=== PATIENT | male | born 1945 | race Caucasian/White ===

== ENCOUNTER → 2018-09-04 13:40 | Outpatient (CLI) | payer OTHER, SELFPAY ==
--- NOTE | 2018-09-04 15:06 | PM.TREADMILL ---
Cardiac Stress Test Report Referral & Results Date Patient Seen: 09/04/18 Requesting provider: Juarez Rahman Indication: Dyspnea Rest ECG: Unremarkable Procedure Note: Today following both written and verbal informed consent, the patient was exercised according to a standard [facility] protocol. The patient exercised for a total of 7 min 3 sec achieving a maximum heart rate of 150 to. Patient's maximum systolic blood pressure was 180. This was an estimated 10.1 MET's. Patient's oxygen saturation of peak exercise was 94% There are no ST see segment changes identified Normal heart rate and blood pressure response to exercise Functional aerobic impairment rated approximately -10 per some sedentary scale, and patient could gone probably much further as the treadmill was stopped Due to having reached his targets Impression: No evidence of ischemia No evidence of hypoxia Normal exercise capacity 2 perhaps better than normal exercise capacity Clinical correlation suggested Please note: Actual ECG tracings can be found in the PACS system.
== END ==
PROVIDERS: PCP Family Medicine Geriatric Medicine; Visit Provider Family Medicine Geriatric Medicine
DX: R06.00 Dyspnea, unspecified (principal)
CPT/HCPCS: 93016; 93017; 93018

== ENCOUNTER 2023-07-04 06:23 | Day surgery (SDC) | payer MEDICARE, SELFPAY ==
[2023-06-17 11:57] VITALS: BMI 32.4
[2023-07-04] VITALS (12 sets, daily range): BP systolic 110–163; BP diastolic 47–78; PULSE 58–93; RESP 12–21; TEMP 36.2–37.3; O2SAT 96–100; BMI 32.4
--- NOTE | 2023-07-04 | DI.RAD.S_ITS ---
PROCEDURE: XR PELVIS 1-2V INDICATIONS: INTER OP IMAGE FOR TOTAL RIGHT HIP TECHNIQUE: Intra-operative view of the pelvis and hip acquired. COMPARISON: [facility], PELVIS 1 OR 2 VIEWS, 01/10/2015, 16:02. FINDINGS: An intraoperative film demonstrates that a total right hip arthroplasty is being performed, with no evidence of complications. IMPRESSION: Intraoperative imaging utilized during total right hip arthroplasty. Dictated by: Ismael Lemus M.D. on 07/04/2023 at 11:04 Approved by: Ismael Lemus M.D. on 07/04/2023 at 11:07
[2023-07-04] MEDS: LACTATED RINGERS 1,000 ML 42 ML IV (07:12)
--- NOTE | 2023-07-04 07:31 | DI.RAD.S_ITS ---
PROCEDURE: XR HIP W PEL IF DONE RT 2V INDICATIONS: total hip TECHNIQUE: AP pelvis and lateral view of the right hip acquired. COMPARISON: [facility], CR, XR PELVIS 1-2V, 07/04/2023, 9:03. [facility], CR, XR PELVIS WITH LATERAL HIP RIGHT, 05/15/2023, 11:17. FINDINGS: Bones: Patient is status post right hip arthroplasty, with hardware components in expected positions. The hip joint appears congruent. The visualized bony structures appear intact. Previous left hip arthroplasty is stable. Soft tissues: Overlying postoperative changes are noted. No suspicious soft tissue densities. IMPRESSION: Expected postoperative changes with new right hip arthroplasty. Stable appearance of left hip arthroplasty. Dictated by: Hanna Hernandez M.D. on 07/04/2023 at 10:53 Approved by: Hanna Hernandez M.D. on 07/04/2023 at 10:53
--- NOTE | 2023-07-04 07:32 | PM.PREOP ---
Pre-operative Note Interval Note History & Physical reviewed/Exam performed by Physician: Yes Changes to H&P: No
[2023-07-04] MEDS: VANCOMYCIN 1,000 MG/200 ML PIGGYBACK 200 MG IV (07:45)
[2023-07-04] MEDS: ACETAMINOPHEN 325 MG TABLET 975 MG PO (07:45)
[2023-07-04] MEDS: CEFAZOLIN 2 GM/100 ML PREMIX 100 ML IV ×2 (08:20→16:00)
--- NOTE | 2023-07-04 08:30 | SUR.OPER ---
Lateral on padded OR bed. Gel axillary roll. Arms secured on padded armboard with pillow supporting top arm. Padded hip positioner braces x4 - anterior and posterior chest and pelvis. Additional gel pad used anterior pelvis. Gel pad under bottom leg from knee to foot and secured with tape over sheet.
[2023-07-04] MEDS: BUPIVACAINE LIPOSOME 266 MG/20 ML VIAL INJ (08:37)
[2023-07-04] MEDS: BUPIVACAINE 0.5% W/ EPI (PF) 30 ML VIAL 60 ML INJ (08:48)
[2023-07-04] MEDS: EPINEPHrine 1 MG/ML TOP (09:00)
--- NOTE | 2023-07-04 10:14 | P.OP_ITS ---
Operative Date/Time/Diagnoses Date of procedure: 07/04/23 Time of procedure: 08:00 Pre-op diagnosis: Left hip osteoarthritis severe Post-op diagnosis: same Procedure & Clinicians Procedure: Left total hip arthroplasty posterior approach Same procedure as scheduled: Yes Indications: The patient has had progressively worsening left hip pain with radiographic changes consistent with arthritis. Non-operative management has failed and the patient has requested total hip replacement. The risks, benefits and alternatives to surgery were discussed with the patient prior to proceeding. Risks discussed included, but were not limited to, failure to relieve pain, leg length discrepancy, dislocation, stiffness, infection, nerve damage, deep venous thrombosis, pulmonary embolism, stroke, coma, heart attack, permanent paralysis and , as well as the potential need for eventual revision of the prosthetic. Surgeon: Flory Holman [employer] Inspector: Prabhakar Gonzales Anesthesia Type: General and Spinal Operative Notes Findings: Severe left hip arthritis, adequate stability, adequate bone Closure Type: primary Specimen(s): none sent Prosthetic devices, grafts, tissues, transplants, or devices: Holman and nephew Synergy size 14 high offset, 60 mm R3 cup, 60 x 40 neutral liner, +4 cobalt chrome head,one 6.5 mm screw Estimated Blood Loss (mL): 250 Blood products transfused: none Procedure in detail: The patient was seen in the pre-operative area, where the patient identified the left hip as the operative site and this was marked with my initials. The patient received pre-operative antibiotics and was taken to the operating room and placed on the operative table in the right lateral decubitus position after satisfactory anesthesia. A returned case inspector out was performed. The left leg was prepared from the ankle to the iliac crest with ChloroPrep in the usual fashion and draped through sterile drapes. The hip was approached through an approximately 20 cm incision centered over the greater trochanter and curving gently posteriorly as it went proximally. This was carried sharply to the fascia john, which was divided and retracted with a self retaining retractor. The trochanteric bursa was excised with care being taken to avoid the sciatic nerve, which was identified and protected throughout the case. The short external rotators were incised and the capsulomuscular flap was raised and tagged for later repair. The hip was dislocated, and a femoral neck osteotomy performed approximately 15 mm above the lesser trochanter. Retractors were placed around the femur. The canal was opened with a box cut ting osteotome, followed by a T handled reamer and a lateralizing reamer. The canal was reamed, followed by sequential broaching until there was good stability of the broach in the femur. Retractors were placed to expose the acetabulum. The labrum and central soft tissues were removed. Reaming was performed initially going up in 2 mm increments, then 1 mm increments until good bite was obtained with an odd sized reamer. The cup 1 mm larger than the last reamer was then inserted using the appropriate anteversion guides. It was further stabilized with a single screw. A trial neutral liner was placed. The broach was placed in the canal. A trial head and neck were then placed and the hip relocated and checked for leg length and stability. An intraoperative film confirmed the component position and no evidence of fracture. The patient was stable in the position of sleep, of squatting, and could be put through a range of motion with 45 degrees internal rotation without dislocation. At 90 degrees flexion, internal rotation to 70? was possible before dislocation. This was felt to be satisfactory and the appropriate components were opened, and the trials were removed. I specifically checked the stem and decided to go up to a size 14 which had good stability. The acetabular liner was impacted into position. The final stem was then impacted into the prepared femoral canal. A brief Betadine soak was performed while trialing with head options. The hip was meticulously irrigated with normal saline. Finally the femoral head was impacted onto the stem. The acetabulum was cleared of all material and the hip relocated one final time. The capsulomuscular flap was then repaired to the greater trochanter though an awl hole using the tag sutures. The short external rotators were repaired with a nonabsorbable suture. A deep drain was placed and brought out anteriorly. The fascia john was closed with Vicryl. The subcutaneous layer was closed with barbed sutures and SteriStrips. An Aquacel Ag dressing was applied and the patient was taken to recovery having tolerated the procedure well. Complications: none Post-operative Condition: stable Disposition: Acute Care Plan for aftercare: The patient will be maintained on a standard total hip replacement protocol with weight bearing as tolerated and posterior hip precautions. The patient will receive Aspirin and sequential compression devices for DVT prophylaxis. The patient will be discharged home when safe for the home environment.
--- NOTE | 2023-07-04 11:38 | PC.NURSE ---
Addendum entered by Sweetie Daniels R.N. 07/04/23 14:45: Pain medication given to patient helpful, heplocked patient has he has been drinking water and he drank some ice tea. Keeping oral fluids down well. Addendum entered by Sweetie Daniels R.N. 07/04/23 11:52: Patient complained of his pain at a 7/8 out of 10 to his r.hip. He did not understand our pain scale. Explained to him that 8/10 pain would mean be patient is crying. Explained pain scale further, and he states that he is in the middle around a 5. Given tylenol and ibuprfen. Will reassess his discomfort in 30 minutes and see if he may need something more for his discomfort. at bedside. Ice water filled up. Original Note: Assess- Patient is awake and states that he has feeling to his r.lower extremity and foot but it feels slightly numb from the spinal that he received in surgery. Dressing to r.hip with aquacel, cdi. CMS wnl and tolerating ivf. Resting comfortably and denies nausea or pain at this time.
[2023-07-04] MEDS: IBUPROFEN 400 MG TABLET PO ×3 (11:45→20:34)
[2023-07-04] MEDS: ACETAMINOPHEN 325 MG TABLET 650 MG PO ×2 (11:46→15:59)
[2023-07-04] MEDS: OXYCODONE IR 5 MG TABLET PO ×2 (12:49→15:59)
[2023-07-04] MEDS: LACTATED RINGERS 1,000 ML 100 ML IV (16:00)
--- NOTE | 2023-07-04 16:05 | PT.IIE ---
Current Diagnoses Unilateral primary osteoarthritis, right hip (07/04/23) Surgery Performed Operation Date: 07/04/23 07:45 Actual Procedures p Total Hip Arthroplasty posterior(Right) - Flory Holman MD Surgical History (Last Updated 06/17/23 @ 12:05 by Letty Mccall, RN) History of hydrocelectomy (2012) History of total left hip replacement (01/10/15) Hx of colonoscopy (2008) S/P excision of lipoma (2005) Medical History (Last Updated 06/17/23 @ 13:21 by Letty Mccall RN) Anesthesia complication BPH (benign prostatic hyperplasia) Gout History of COVID-19 (11/2022) HTN (hypertension) DANTE on CPAP Physical Therapy Inpatient Evaluation/Re-Eval M1 PT/OT-IP Prior Functional Status Start: 07/04/23 15:51 Freq: NEEDED Status: Active Protocol: Document 07/04/23 15:51 ED (Rec: 07/04/23 16:05 ED [id number]) Medical Review Prior Functional Status Medical History Reviewed Yes Communication A&Ox4 Mobility and Gait ambulated in community. Recently was using quad cane d /t accumulating hip pain Social History Household Members spouse Living Arrangements House Number of Floors (Floors) Two Floors Number of Stairs To Enter/Railing? 5 VILMA c/ railing BUT has ramped entrance as well Home Environment Walk in Shower,Ramp Home Equipment Front Wheel Walker,Quad Cane, Hand Held Shower Employment Status Retired M2 PT-IP Current Condition Start: 07/04/23 15:51 Freq: NEEDED Status: Active Protocol: Document 07/04/23 15:51 ED (Rec: 07/04/23 16:05 ED [id number]) Physical Therapy Current Condition Current Condition Evaluation Date 07/04/23 Treatment Diagnosis impaired functional mobility Onset Date 07/04/23 M3 PT-IP Subjective Start: 07/04/23 15:51 Freq: NEEDED Status: Active Protocol: Document 07/04/23 15:51 ED (Rec: 07/04/23 16:05 ED [id number]) Subjective Physical Therapy Visit Type Type Initial Evaluation Visit Start Time 15:00 Visit Stop Time 15:40 Total Visit Minutes 40 Physical Therapy Visit Comments Patient Comments Pt has had DIANNA of L hip a few years ago so he states he is aware of the precautions. He is able to verbalize the precautions to PT. States he has outpatient PT scheduled for next Saturday. He will live on the main floor of their home so he can avoid negotiating steps for the time being. Has spare bedroom that he will sleep in. Patient Goals Go home and stop using quad cane when walking Therapy Pain Assessment Pain When Pain Assessed At Rest Pain Present Pain Present Pain Reported Location hip Intensity 5 Scale Used Numeric (0 - 10) Description Aching,Acute Pain Management Techniques Apply Cold,Re-positioning, Timing of Activity with Medications M4 PT-IP Mobility and Gait Start: 07/04/23 15:51 Freq: NEEDED Status: Active Protocol: Document 07/04/23 15:51 ED (Rec: 07/04/23 16:05 ED [id number]) PT-Bed Mobility Assessment Rolling Type of Rolling Roll to Right Level of Assist Standby Assistance Supine to Sit Supine to Sit Contact Guard Assistance, Bedrails Scooting Scooting to Edge of Bed Standby Assistance Scooting Up and Down in Bed Standby Assistance PT-Transfer Assessment Sit to and From Stand Sit to and from Stand Contact Guard Assistance,Use of Upper Extremities Equipment Transfer Assistive Device Gait Belt,Front Wheeled Walker Orthotic/Prosthetic Devices or Brace: No Transfers Transfer Destination Chair Transfer Technique Stand Step Pivot Transfer Ability Level of Assist Contact Guard Assistance Gait Assessment Gait Gait Assistance Required: Contact Guard Assist Distance (Feet) 50 Able to Maintain Weight Bearing Status Yes During Gait Assistive Devices Assistive Device Gait Belt,Front Wheeled Walker Orthotic/Prosthetic Devices or Brace: No Gait Deviations General Gait Pattern Decreased Stride Length,Flexed Trunk Comments Gait Comments Pt able to ambulate 2x50' using FWW demonstrating step through gait pattern c/ reduced step length. Slightly kyphotic posture throughout. Able to negotiate 180 degree turns in hallway and adhere to post. hip precautions. PT-Balance Assessment Sitting Balance and Reactions Static Sitting Balance Ability Good Dynamic Sitting Balance Ability Good M5 PT-IP Objective Assessments Start: 07/04/23 15:51 Freq: NEEDED Status: Active Protocol: Document 07/04/23 15:51 ED (Rec: 07/04/23 16:05 ED [id number]) Orientation Orientation/Cognition Level of Alertness Alert Orientation Name,Age,Birthday,Month,Date, Year,Day of Week,Place, Situation Language Function Ability No Deficits Noted Safety Awareness Understands Safety Issues Memory Description No Deficits Noted Gross Range of Motion Upper Extremity ROM Assessment Within Functional Limits M6 PT-IP Treatment Start: 07/04/23 15:51 Freq: NEEDED Status: Active Protocol: Document 07/04/23 15:51 ED (Rec: 07/04/23 16:05 ED [id number]) Physical Therapy Treatment Exercises Exercises Ankle Pumps,Gluteal Sets,Heel Slides Education Education Provided Precautions,Weight Bearing Status,Post-Op Packet,Safety Other Treatments Other Treatment Performed supine > sit EOB using bed rails x1 sit<>stand FWW 1x20' ambulate FWW 2x50' ambulate FWW 1x20 heel slides and ankle pumps M7 PT-IP Assessment and Plan Start: 07/04/23 15:51 Freq: NEEDED Status: Active Protocol: Document 07/04/23 15:51 ED (Rec: 07/04/23 16:05 ED [id number]) PT Summary Assessment and Plan Potential Rehabilitation Potential Excellent Status of Condition at Evaluation Stable Summary Impairments Pain,Strength,Transfers,Gait Progress Towards Goals Progressing Toward Goals Assessment Summary Pt doing well s/p R DIANNA posterior approach. Pt able to verbalize posterior hip precautions. Pt effectively required SBA for bed mobility and CGA for upright functional mobility such as standing and ambulating. HR was ~78 bpm and O2% was 98% following last walk. Pain was rated as 5/10 but was not activity limiting during treatment. Pt left in chair c/ call-light within reach. Goals Bed Mobility Goal Independent Transfer Goal Standby Assistance,Front Wheeled Walker Gait Goal Standby Assistance,Front Wheel Walker Gait Distance 100' Other Goals Pt will be able to negotiate 5 steps using bilateral railings c/ step to pattern. Days to Meet Goals 3 Frequency of Treatment Frequency Of Treatment Twice a Day Treatment Plan Physical Therapy Treatment Plan Bed Mobility Training,Transfer Training,Gait Training, Therapeutic Exercise,Post Op Education,Discharge Planning, Hot or Cold Pack Precautions Posterior Hip Precautions No Hip Flexion > 90 degrees,No Hip Internal Rotation,No Hip Adduction Weight Bearing Status Weight Bearing Status Full Weight Bearing Recommendations To Nursing Amount of Assist Needed 1 Person Assist Discharge Recommendations PT Discharge Recommendations Home with Assistance Transportation Needs at Discharge Private Vehicle
[2023-07-04] MEDS: DOCUSATE 100 MG CAPSULE PO (20:34)
[2023-07-04] MEDS: ASPIRIN EC 81 MG TABLET PO (20:34)
[2023-07-04] MEDS: TAMSULOSIN 0.4 MG CAPSULE PO (20:34)
[2023-07-05] VITALS: BP 136/66; PULSE 86; RESP 16; TEMP 37.9; O2SAT 96
[2023-07-05] MEDS: CEFAZOLIN 2 GM/100 ML PREMIX 100 ML IV (00:01)
[2023-07-05] MEDS: ACETAMINOPHEN 325 MG TABLET 650 MG PO ×2 (03:42)
[2023-07-05] MEDS: IBUPROFEN 400 MG TABLET PO ×2 (03:45→06:26)
[2023-07-05 03:47] VITALS: BP 121/51; PULSE 83; RESP 17; TEMP 36.9; O2SAT 95
[2023-07-05 07:07] LABS: Hematocrit 32.9 % (41-53); Hemoglobin 11.5 g/dL (13.5-17.5)
[2023-07-05 08:00] VITALS: BP 116/44; PULSE 69; RESP 17; TEMP 36.2; O2SAT 96
[2023-07-05] MEDS: OXYCODONE IR 5 MG TABLET PO (08:35)
[2023-07-05] MEDS: ASPIRIN EC 81 MG TABLET PO (08:35)
[2023-07-05] MEDS: DOCUSATE 100 MG CAPSULE PO (08:35)
--- NOTE | 2023-07-05 08:37 | OT.IP.EVAL ---
Current Diagnoses Unilateral primary osteoarthritis, right hip (07/04/23) Surgery Performed Operation Date: 07/04/23 07:45 Actual Procedures p Total Hip Arthroplasty posterior(Right) - Flory Holman MD Past Medical History (Last Updated 06/17/23 @ 13:21 by Letty Mccall, RN) Anesthesia complication BPH (benign prostatic hyperplasia) Gout History of COVID-19 (11/2022) HTN (hypertension) DANTE on CPAP Surgical History (Last Updated 06/17/23 @ 12:05 by Letty Mccall RN) History of hydrocelectomy (2012) History of total left hip replacement (01/10/15) Hx of colonoscopy (2008) S/P excision of lipoma (2005) Occupational Therapy Inpatient Evaluation/Re-Eval M1 PT/OT-IP Prior Functional Status Start: 07/04/23 15:51 Freq: NEEDED Status: Active Protocol: Document 07/04/23 15:51 ED (Rec: 07/04/23 16:05 ED [id number]) Medical Review Prior Functional Status Medical History Reviewed Yes Communication A&Ox4 Mobility and Gait ambulated in community. Recently was using quad cane d /t accumulating hip pain Social History Household Members spouse Living Arrangements House Number of Floors (Floors) Two Floors Number of Stairs To Enter/Railing? 5 VILMA c/ railing BUT has ramped entrance as well Home Environment Walk in Shower,Ramp Home Equipment Front Wheel Walker,Quad Cane, Hand Held Shower Employment Status Retired M1 PT/OT-IP Prior Functional Status Start: 07/05/23 09:27 Freq: NEEDED Status: Active Protocol: Document 07/05/23 08:37 [facility] (Rec: 07/05/23 09:41 [facility] [id number]) Medical Review Prior Functional Status Medical History Reviewed Yes Communication A&Ox4 Mobility and Gait ambulated in community. Recently was using quad cane d /t accumulating hip pain Activities of Daily Living and IADL's Pt having pain with ADl and IADl needs. Social History Household Members spouse Living Arrangements House Number of Floors (Floors) Two Floors Number of Stairs To Enter/Railing? 5 VILMA c/ railing BUT has ramped entrance as well Home Environment Walk in Shower,Ramp Home Equipment Front Wheel Walker,Quad Cane, Hand Held Shower,Long Handled Sponge,Long Handled Shoe Horn, Vice President Investor Relations,Sock Aid Employment Status Retired M2 OT-IP Current Condition Start: 07/05/23 09:27 Freq: Status: Active Protocol: Document 07/05/23 08:37 [facility] (Rec: 07/05/23 09:41 [facility] [id number]) Occupational Therapy Current Condition Current Condition Evaluation Date 07/05/23 Treatment Diagnosis S/P R DIANNA Diagnosis Onset Date 07/04/23 Post Operative Precautions Posterior Hip Precautions No Hip Flexion > 90 degrees,No Hip Internal Rotation,No Hip Adduction M3 OT- IP Subjective and Pain Start: 07/05/23 09:27 Freq: Status: Active Protocol: Document 07/05/23 08:37 [facility] (Rec: 07/05/23 09:41 [facility] [id number]) OT- Subjective Occupational Therapy Visit Type Type Initial Evaluation Visit Start Time 08:37 Visit Stop Time 09:01 Occupational Therapy Visit Comments Patient Comments Pt's present for OT eval. Patient/Caregiver Goals TO go home. OT Pain Assessment Pain When Pain Assessed During Mobility Pain Present Pain Present Pain Reported Location hip Intensity 4 Scale Used Numeric (0 - 10) M4 OT- IP ADL's Start: 07/05/23 09:27 Freq: Status: Active Protocol: Document 07/05/23 08:37 [facility] (Rec: 07/05/23 09:41 [facility] [id number]) OT [id number] General Evaluation Self-Feeding Ability Independent OT ADL-Grooming General Evaluation Grooming Ability Independent OT ADL-Oral Care General Eval Oral Care Ability Independent OT ADL-Dressing General Eval Lower Body Dressing Ability Moderate Assistance,Maximum Assistance Comments OT Dressing Comments Pt able to use horse exerciser to andrea his underwear and pants. Pt needing assist for socks and shoes as too tired to try to use sock aid at this time. Pt' s also able to assist as needed. OT ADL-Toileting Comments OT Toileting Comments Pt states will call his to assist as needed. OT ADL-Bathing Comments OT Bathing Comments Pt able to sponge off some while at the edge of the bed. M5 OT- IP IADL's Start: 07/05/23 09:27 Freq: Status: Active Protocol: Document 07/05/23 08:37 [facility] (Rec: 07/05/23 09:41 [facility] [id number]) OT-Instrumental Activities of Daily Living Deficits IADL Deficits Identified Deficits Home Safety Awareness Awareness of Need for Assistance at Home Good Awareness Ability to Problem Solve Emergency Able to Problem Solve Situations Home Safety Comments Pt has a supportive to be able to assist for all needs as needed. M6 OT- IP Functional Cognition Start: 07/05/23 09:27 Freq: Status: Active Protocol: Document 07/05/23 08:37 [facility] (Rec: 07/05/23 09:41 [facility] [id number]) Cognitive Factors Limiting Selfcare Function Cognitive Ability Level of Alertness Alert Patient Orientation Name,Age,Birthday,Month,Date, Year,Day of Week,Place, Situation Attention Span Ability Capable of Focused Attention, Capable of Sustained Attention Ability to Follow Commands Able to Follow Multi-Step Commands Cognitive Comments Cognitive Assessment Comments Pt intact and able to follow his hip precautions for ADL and mobility needs. OT- Vision and Hearing OT- Hearing Assessment OT- Hearing Assessment WFL OT- Vision Assessment Visual Acuity Glasses For Reading M7 OT- IP Mobility and Balance Start: 07/05/23 09:27 Freq: Status: Active Protocol: Document 07/05/23 08:37 [facility] (Rec: 07/05/23 09:41 [facility] [id number]) OT- Bed Mobility Assessment Supine to Sit Supine to Sit Assist Standby Assistance OT-Transfer Assessment Sit to and From Stand Sit to and from Stand Contact Guard Assistance Transfers Transfer Ability Standby Assistance Technique Transfer Destination Bed,Chair Comments Mobility Comments Pt able to safely andrea/ doff gait belt and assist pt to stand and for transfers. Pt needing CGA to close SBA for all. OT- Balance Assessment Sitting Balance and Reactions Static Sitting Balance Ability Normal Dynamic Sitting Balance Ability Good Standing Balance and Reactions Static Standing Balance Ability Good Dynamic Standing Balance Ability Fair M9 OT- IP Assessment and Plan Start: 07/05/23 09:27 Freq: Status: Active Protocol: Document 07/05/23 08:37 [facility] (Rec: 07/05/23 09:41 [facility] [id number]) OT Summary Assessment and Plan Potential Rehabilitation Potential Excellent Analytic Complexity at Evaluation Low Summary OT Impairments Pain,Balance,Functional Mobility,Dressing,Toileting, Bathing,Toilet Transfers, Shower Transfers Progress Towards Goals Progressing Toward Goals Assessment Summary Pt low complexity and main barriers is pain. pt's present for caregiver training and able to safely assist pt for all ADl and mobility needs . Pt looking to go home today with to assist. Goals Grooming Goal Independent Dressing Goal Independent Toileting Goal Independent Bathing Goal Independent Toilet Transfer Goal Independent Shower Transfer Goal Independent Days to Meet Goals 7 Frequency of Treatment Frequency Of Treatment Once a Day Treatment Plan OT Treatment Plan ADL Training,Functional Mobility,Patient/Family Education,Discharge Planning Discharge Recommendations OT Discharge Recommendations Home with Assistance, Outpatient PT Transportation Needs at Discharge Private Vehicle
--- NOTE | 2023-07-05 08:58 | PT.IPTN ---
Current Diagnoses Unilateral primary osteoarthritis, right hip (07/04/23) Surgery Performed Operation Date: 07/04/23 07:45 Actual Procedures p Total Hip Arthroplasty posterior(Right) - Flory Holman MD Physical Therapy Treatment Note M2 PT-IP Current Condition Start: 07/04/23 15:51 Freq: NEEDED Status: Active Protocol: Document 07/04/23 15:51 ED (Rec: 07/04/23 16:05 ED [id number]) Physical Therapy Current Condition Current Condition Evaluation Date 07/04/23 Treatment Diagnosis impaired functional mobility Onset Date 07/04/23 M3 PT-IP Subjective Start: 07/04/23 15:51 Freq: NEEDED Status: Active Protocol: Document 07/05/23 09:08 TS (Rec: 07/05/23 09:17 TS [id number]) Subjective Physical Therapy Visit Type Type Treatment Note Visit Start Time 08:58 Visit Stop Time 09:08 Total Visit Minutes 10 Number of FEEDER ASSOCIATE Visits 1 Physical Therapy Visit Comments Patient Comments Pt found with spouse in room, reports he is ready to go home . M4 PT-IP Mobility and Gait Start: 07/04/23 15:51 Freq: NEEDED Status: Active Protocol: Document 07/05/23 09:08 TS (Rec: 07/05/23 09:17 TS [id number]) PT-Transfer Assessment Sit to and From Stand Sit to and from Stand Contact Guard Assistance,Use of Upper Extremities Equipment Transfer Assistive Device Gait Belt,Front Wheeled Walker Orthotic/Prosthetic Devices or Brace: No Comments Mobility Comments Pt recalled 3/3 hip precautions prior to mobility. CGA for sit to stand, pt demonstrates good carryover of sequencing with BUE support on arms of chair and RLE extended. Pt ambulated ~100' SBA with quick pace step thru gait, no buckling or LOB. Pt was left back in room preparing for d/c. Gait Assessment Gait Gait Assistance Required: Standby Assistance Distance (Feet) 100 Able to Maintain Weight Bearing Status Yes During Gait Assistive Devices Assistive Device Gait Belt,Front Wheeled Walker Orthotic/Prosthetic Devices or Brace: No Gait Deviations General Gait Pattern Decreased Stride Length,Flexed Trunk Stair Climbing Assessment Comments Stair Climbing Comments Has ramp entry PT-Balance Assessment Sitting Balance and Reactions Static Sitting Balance Ability Good Dynamic Sitting Balance Ability Good Standing Balance and Reactions Static Standing Balance Ability Good Dynamic Standing Balance Ability Good M5 PT-IP Objective Assessments Start: 07/04/23 15:51 Freq: NEEDED Status: Active Protocol: Document 07/04/23 15:51 ED (Rec: 07/04/23 16:05 ED [id number]) Orientation Orientation/Cognition Level of Alertness Alert Orientation Name,Age,Birthday,Month,Date, Year,Day of Week,Place, Situation Language Function Ability No Deficits Noted Safety Awareness Understands Safety Issues Memory Description No Deficits Noted Gross Range of Motion Upper Extremity ROM Assessment Within Functional Limits M6 PT-IP Treatment Start: 07/04/23 15:51 Freq: NEEDED Status: Active Protocol: Document 07/05/23 09:08 TS (Rec: 07/05/23 09:17 TS [id number]) Physical Therapy Treatment Education Education Provided Precautions,Weight Bearing Status,Post-Op Packet,Safety M7 PT-IP Assessment and Plan Start: 07/04/23 15:51 Freq: NEEDED Status: Active Protocol: Document 07/05/23 09:08 TS (Rec: 07/05/23 09:17 TS [id number]) PT Summary Assessment and Plan Potential Rehabilitation Potential Excellent Summary Impairments Pain,Strength,Transfers,Gait Progress Towards Goals Progressing Toward Goals Assessment Summary Pt continues to do well with his mobility. He is CGA for sit to stand, demonstrates good carryover sequencing. Pt progressed his ambulation to ~ 100' in hallway SBA with quick paced step thru gait with no LOB. PT recommends home with assist from spouse. Goals Bed Mobility Goal Independent Transfer Goal Standby Assistance,Front Wheeled Walker Gait Goal Standby Assistance,Front Wheel Walker Gait Distance 100' Other Goals Pt will be able to negotiate 5 steps using bilateral railings c/ step to pattern. Days to Meet Goals 3 Frequency of Treatment Frequency Of Treatment Twice a Day Treatment Plan Physical Therapy Treatment Plan Bed Mobility Training,Transfer Training,Gait Training, Therapeutic Exercise,Post Op Education,Discharge Planning, Hot or Cold Pack Precautions Posterior Hip Precautions No Hip Flexion > 90 degrees,No Hip Internal Rotation,No Hip Adduction Weight Bearing Status Weight Bearing Status Full Weight Bearing Recommendations To Nursing Amount of Assist Needed 1 Person Assist Discharge Recommendations PT Discharge Recommendations Home with Assistance Transportation Needs at Discharge Private Vehicle
--- NOTE | 2023-07-05 10:52 | CM.DANOTE ---
Initial Discharge Assessment Note: Case reviewed, met with patient and spouse. Introduced self and role. Payer: [employer] PCP: Dr Zulma Rahman 78 year old underwent L THR surgery yesterday and is recovering well. Patient has discharge orders and is wanting to return home. Patient is independent at baseline, has walker. Spouse will assist him at home and he will go to outpt therapy. MELANY Hernández will make ferry reservations for the 12:00 ferry today. Nurse Maggy will coordinate. PLAN: Discharge home with spouse per orders. ROSALINO Discharge Planning/Care Management CM Discharge Assessment Start: 07/05/23 10:50 Freq: Status: Active Protocol: Document 07/05/23 10:51 SJ (Rec: 07/05/23 10:51 [id number]) Discharge Planning Assessment Assigned Lead Burner Yumi Batista RN/MILTONP Advance Directives? Yes Advance Directives on File Yes History Provided By Patient Prior Living Arrangements House Household Members spouse Type of transporation used prior to Drives own vehicle admit Independent with ADL's Yes Is patient alert and oriented? Yes Caregiver for Another No Discharge Plan Home Referrals Initiated None needed Review Status In Process Next Review Type Continued Stay Review Pre-Anesthesia Assessment Start: 06/17/23 11:57 Freq: Status: Active Protocol: Document 06/17/23 11:57 CAB (Rec: 06/17/23 13:33 CAB [id number]) Pre-Anesthesia Assessment Preferred Name Skinny Patient Information Reviewed Via Phone Assessment Assessment Completed With Patient Diagnostic Results BMP/CMP,CBC,EKG,Urinalysis Comment Outside labs/EKG scanned Primary Care Provider Delfin Snow Seen Specialist in Last 12 Months Yes Specialist Seen Orthopedist Primary Language Green[place]ic Oil And Gas Drafter Required No Height 191.77 cm Weight 119.295 kg Body Mass Index (BMI) 32.4 Hearing Ability Normal Visual Assist Glasses Dentition Type Teeth, Natural Present Barriers to Learning None Hx Anesthesia Reactions Yes: Woke up combative from Hydrocelectomy surgery 2012 Additional comment Unable to do a spinal with left hip replacement in 2014, changed to GA Hx Family Anesthesia Reaction No Hx Malignant Hyperthermia No Hx Blood Transfusions No Anesthesia Review Requested No 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 No Does patient have URIBE/SOB No Hx Sleep Apnea Yes: Improved w/weight loss, does not use CPAP CPAP/BIPAP use prescribed not used Currently Taking a Beta Manuel No Can You Climb a Flight of Stairs Without Yes SOB Hx Chest Pain No Hx SOB No Hx Syncope or Dizziness No Anti-Coagulant Therapy No Has a Molding Press Operator No Cardiac Testing No Hx Pacemaker/ICD No Pacemaker Rep Required? No Cardiac Clearance Received Not Applicable Diet Type At Home Regular Dysphagia No Gastrointestinal Symptoms None Chronic UTI No Bladder Pattern Frequency Urinary Catheter Present No Hx Urinary Self Catheterization No Comment Controlled with Tamsulosin Diabetes No Hx Drug Resistant Organism No Presence of External or Internal Medical Yes: Left hip prosthesis Devices Have you had any close contact with No someone diagnosed with COVID-19? Received a COVID vaccine? Yes Received all doses? Yes Marital Status Lives With spouse Current Living Arrangements House Number of Floors (Floors) Two Floors Support System Spouse Does the Patient Have Assistance After Yes Surgery Patient Discharge Plan Description Return Home Comment Pt not advised on length of stay per surgeon Feels Safe in Current Environment Yes Been Physically Hurt or Threatened By a No Person in Current Environment Do you have thoughts of harming yourself None or others? Are you currently considering suicide? No Do you have a plan to hurt yourself or No Plan others? Do You Have Any Spiritual Beliefs That No May Affect Your HC Choices? Do You Have Any Cultural Practices That No May Affect Your HC Choices? Who Can We Speak to About Patient's Care Family, friends Identifying Code for Release of Patient Declines to issue Information Health Care Proxy/Next of Kin Joselin () Salima ( daughter) Coby (daughter ) Health Care Proxy Phone Number Joselin: [phone] Salima: [phone] Coby: [phone] Emergency Contact Name Joselin () Salima ( daughter) Coby (daughter ) Emergency Contact Phone Number Joselin: [phone] Salima: [phone] Coby: [phone] Advance Directives? Yes Advance Directives on File Yes Power of Lime Spreader Yes Power of Lime Spreader Name Joselin () Salima ( daughter) Coby (daughter ) Power of Lime Spreader Phone Number Joselin: [phone] Salima: [phone] Coby: [phone] PAC Instructions Bring CPAP/BIPAP,Durable medical equipment,Medications to take/avoid,Nasal antibiotic ,No ETOH/petroleum product on skin DOS,NPO,Post-op transportation,Pre-surgical wash,Sensory aids,Sturdy shoes /comfortable clothes,Do not bring valuables and remove jewelry
--- NOTE | 2023-07-05 13:17 | PM.DS.1 ---
History of Present Illness History of Present Illness Date Patient Seen: 07/05/23 Time Patient Seen: 13:17 Chief complaint: hip pain Narrative: left hip pain is moderate. No fever or chills. No nausea or vomiting. Discharge Providers Provider Discharge Date: 07/05/23 Primary care physician: Juarez Rahman MD Consults: 07/04/23 07:29 Consult to Anesthesiology Routine Comment: Consulting Provider: Anesthesiologist Reason for consultation: Regional block for post operative pain control 07/04/23 07:33 Consult to Anesthesiology Routine Comment: Consulting Provider: Anesthesiologist Reason for consultation: Regional block for post operative pain control 07/04/23 10:48 Consult to Discharge Planning Routine Comment: Consult to Occupational Therapy Evaluate & Treat Comment: Physician Instructions: Evaluate and treat Consult to Physical Therapy Evaluate & Treat Comment: Physician Instructions: post op DIANNA protocol Discharge provider: Prabhakar Gonzales PA-C Summary Hospital Course Discharge Diagnosis: Left hip osteoarthritis Hospital Course: Procedure: Left total hip arthroplasty posterior approach Same procedure as scheduled: Yes Indications: The patient has had progressively worsening left hip pain with radiographic changes consistent with arthritis. Non-operative management has failed and the patient has requested total hip replacement. The risks, benefits and alternatives to surgery were discussed with the patient prior to proceeding. Risks discussed included, but were not limited to, failure to relieve pain, leg length discrepancy, dislocation, stiffness, infection, nerve damage, deep venous thrombosis, pulmonary embolism, stroke, coma, heart attack, permanent paralysis and , as well as the potential need for eventual revision of the prosthetic. Surgeon: Flory Holman Research Manager: Prabhakar Gonzales Anesthesia Type: General and Spinal Operative Notes Findings: Severe left hip arthritis, adequate stability, adequate bone Closure Type: primary Specimen(s): none sent Prosthetic devices, grafts, tissues, transplants, or devices: Holman and nephew Synergy size 14 high offset, 60 mm R3 cup, 60 x 40 neutral liner, +4 cobalt chrome head,one 6.5 mm screw Estimated Blood Loss (mL): 250 Blood products transfused: none patient admitted to the hospital for the above-mentioned procedure. Patient consented to the same. Patient underwent left total hip arthroplasty, posterior approach on July 04, 2023. Patient has been is his room recovering well as in stable condition. Patient will be discharged home today in stable condition. Exam Vital Signs (past 8 hours): - 07/05/23 08:00 Temperature 97.1 F L Pulse Rate 69 Respiratory Rate 17 Blood Pressure 116/44 L Pulse Oximetry 96 Oxygen Flow Rate 0 Oxygen Delivery Method Room Air Oxygen Flow Rate 0 Narrative Exam Narrative: 78-year-old male resting comfortably in bed in no apparent distress. Dressing is Clean, dry, intact. . Motor functions intact bilateral lower extremities. Sensation grossly intact to light touch bilateral lower extremities. 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 If it is with in your usual range than take it. Discharge orders & Medications Discharge Orders: Discharge (Order); Ordered 07/05/23 Ordered By: Prabhakar Gonzales Prescriptions: New acetaminophen 325 mg Tablet 650 mg PO Q6H Qty: 60 0RF aspirin 81 mg Tablet,Delayed Release (Dr/Ec) 81 mg PO BID Qty: 60 0RF ibuprofen 400 mg Tablet 400 mg PO Q4H Qty: 60 0RF oxycodone 5 mg Tablet 5 mg PO Q3H PRN (Reason: Pain, Moderate (4-6)) Qty: 40 0RF Continued lisinopril 20 mg Tablet 20 mg PO DAILY tamsulosin 0.4 mg Capsule 0.4 mg PO BEDTIME Discontinued acetaminophen 500 mg Tablet 1,000 mg PO TID PRN (Reason: Pain) Follow up/Referrals: Juarez Rahman MD [Primary Care Provider] - Flory Holman MD [Physician] - As previously scheduled (Follow up with Elly Adams PA-C, on 07/17/2023 @ 1:00 pm at [facility] office in [place].) Diet/Activity/Treatments Diet: Diet as Tolerated Activity: Weightbearing as tolerated to right leg. Posterior hip precautions. Cold/Heat Therapy: Ice to right hip as needed for pain. Skin/Wound/Dressing Care Report to your healthcare provider any signs of infection, such as:: chills, fever, night sweats, unusual drainage and unusual redness Dressing: May shower. Leave dressing in place until follow up in office. No bathing or otherwise soaking incision. Call the office if the dressing becomes saturated inside. Visit Report/Discharge Packet Instructions: DI for Hip Replacement, DI for Constipation, How to Prevent Falls, DI for Prescription Opioid Use, How to Monitor Your Blood Pressure at Home Stand Alone Forms: Patient Portal/API, Surgery Discharge Discharge Data Primary Care Provider: Juarez Rahman Attending Provider: Flory Holman
--- NOTE | 2023-07-05 14:09 | PC.NURSE ---
Discharge: Seen by PA and d/c orders written. Instructions given. OT/PT saw pt and he is same for d/c. Spouse was here at time of teaching. Pt is tolerating diet w/out problems. Reports po pain medication is effective. Reviewed exparel, med will release slowly over another couple of days. He may have more pain tomorrow. Pt is voiding w/out diff. Aquacel is c/d/i and has received wound/dressing instructions. Already has rx for oxy. Rest of rx's have been sent into the pharmacy. Reviewed d/c packet and understood. Pt had already received d/c instructions from Physical therapy. Priority load pass given. Pt d/c to home via auto with spouse.
== END 2023-07-05 10:30 | disposition home or self-care (01) ==
LOC: OR 06:25 → AC 06:25
PROVIDERS: PCP Student in an Organized Health Care Education/Training Program; Referring Provider Orthopaedic Surgery; Visit Provider Orthopaedic Surgery
PROC: 0SR90JZ Replacement of Right Hip Joint with Synthetic Substitute, Open Approach (ICD-10-PCS; CPT 27130; principal; 2023-07-04 07:45)
DX: M16.12 Unilateral primary osteoarthritis, left hip (principal); I10 Essential (primary) hypertension; G47.33 Obstructive sleep apnea (adult) (pediatric)
CPT/HCPCS: 27130; 36415; 72170; 73502; 85014; 85018; 97110; 97116; 97161; 97165; 97535; C1776; C9290; J0171; J0690; J2704; J3010

== ENCOUNTER → 2023-07-17 13:54 | Outpatient (CLI) | payer MEDICARE, SELFPAY ==
[2023-07-04 06:32] VITALS: BMI 32.4
[2023-07-17 14:44] LABS: Add Manual Diff / Slide Review NO; Basophils Absolute Auto 0 /uL (0-100); Basophils Percent Auto 0.4 % (0-2); Eosinophils Absolute Auto 200 /uL (0-450); Eosinophils Percent Auto 1.8 % (2-4); Hematocrit 35.1 % (41-53); Hemoglobin 12.1 g/dL (13.5-17.5); Lymphocytes Absolute Auto 1700 /uL (1100-4500); Lymphocytes Percent Auto 16.4 % (25-40); Mean Corpuscular HGB Conc 34.5 % (30-36); Mean Corpuscular Hemoglobin 32.4 PG (26-34); Monocytes Absolute Auto 500 /uL (0-900); Monocytes Percent Auto 4.8 % (3-14); Neutrophils Absolute Auto 8100 /uL (1500-7000); Neutrophils Percent Auto 76.6 % (50-75); Platelet Count 403 X10^3/uL (150-400); Red Blood Cell Count 3.74 X10^6/uL (4.5-5.9); Red Cell Distribution Width 13.1 % (11.6-14.8); White Blood Cell Count 10.5 X10^3/uL (4.5-11.0)
[2023-07-17 14:55] LABS: Alanine Aminotransferase 20 IU/L (<50); Albumin 3.9 g/dL (3.5-5.0); Albumin Globulin Ratio 1.5 (1.0-2.8); Alkaline Phosphatase 82 U/L (38-126); Aspartate Aminotransferase 23 IU/L (17-59); BUN Creatinine Ratio 30.6 (6-22); Bilirubin Total 0.4 mg/dL (0.2-1.3); Blood Urea Nitrogen 26 mg/dL (9-20); C-Reactive Protein Quant 1.7 mg/dL (<1.0); Calcium 9.4 mg/dL (8.4-10.2); Carbon Dioxide 28 mmol/L (22-32); Chloride 103 mmol/L (98-107); Estimated Glomerular Filt Rate > 60 mL/min (>60); Globulin 2.6 g/dL (1.7-4.1); Glucose 94 mg/dL (80-110); HEMOLYSIS < 15 (0-50); Potassium 4.8 mmol/L (3.4-5.1); Sodium 139 mmol/L (137-145); Total Protein 6.5 g/dL (6.3-8.2)
[2023-07-17 15:03] LABS: Erythrocyte Sedimentation Rate 20 MM/HR (0-15)
== END ==
PROVIDERS: PCP Student in an Organized Health Care Education/Training Program; Referring Provider Physician Assistant; Visit Provider Physician Assistant
DX: R79.82 Elevated C-reactive protein (CRP) (principal); Z01.812 Encounter for preprocedural laboratory examination
CPT/HCPCS: 36415; 80053; 85025; 85651; 86140